=== PATIENT | male | born 1980 | race Caucasian/White ===

== ENCOUNTER 2021-08-21 17:29 | Emergency (ER) | payer OTHER, SELFPAY ==
--- NOTE | ~2021-08-21 | XR_ITS ---
EXAMINATION: XR HAND, RIGHT CLINICAL INFORMATION: Lacerations to the second, third and fourth digits. COMPARISON: None TECHNIQUE: PA, lateral, and oblique views of the right hand. FINDINGS: There is a soft tissue laceration mid phalanx third and fourth digits. No radiopaque calculi seen. No bony abnormality. The PIP and DIP joints are normal. The MCP and intercarpal joint spaces are normal. XR/XR hand RT min 3V IMPRESSION: Soft tissue laceration along the volar aspect mid phalanx third and fourth digits. No radiopaque foreign body. No bony normality.
[2021-08-21 17:42] VITALS: BP 140/89; PULSE 74; RESP 18; TEMP 36.6; O2SAT 98; BMI 29.6
--- NOTE | 2021-08-21 19:18 | ED_ITS ---
HPI - Wound/Laceration General Chief Complaint: Wound/Laceration Stated Complaint: laceration on R hand Source: patient Mode of arrival: ambulatory Limitations: no limitations History of Present Illness HPI narrative: 41-year-old male presents with laceration to 2nd 3rd 4th digits while he was at work. Patient got his hand stuck in a machine earlier today. Onset (ago): hour(s) (Several hours prior to arrival) Extremity Location: right: hand Place: work Patient tetanus UTD: No Context: accidental Associated symptoms: pain Treatments prior to arrival: bandage Related Data Previous Rx's Medication Instructions Recorded amoxicillin 875 mg-potassium 1 tab PO Q12H 10 days #20 tabs 08/21/21 clavulanate 125 mg tablet oxycodone 5 mg tablet 5 mg PO Q4H PRN pain 3 days #18 08/21/21 tabs Allergies Allergy/AdvReac Type Severity Reaction Status Date / Time No Known Allergies Allergy Unverified 11/30/19 17:59 Review of Systems Review of Systems: Constitutional: No Fever, No Chills ENT/Mouth: No Ear Pain, No Hoarseness, No sore throat Eyes: No Eye Pain, No Swelling, No Redness, No Foreign Body Cardiovascular: No Chest Pain, No SOB Respiratory: No Cough, No Dyspnea Gastrointestinal: No Nausea, No Vomiting, No Diarrhea, No abdominal Pain Genitourinary: No Dysuria, No Hematuria Musculoskeletal: positive right hand pain, No Myalgias, No Joint Swelling Skin: Positive lacerations to right 2nd 3rd and 4th volar aspect of the finger, lacerations to the dorsal aspect of the 3rd and 4th fingers, No rash Neuro: No Weakness, No Numbness, No Paresthesias, No Loss of Consciousness, No Dizziness, No Headache Psych: No Anxiety/Panic, No Depression Heme/Lymph: no easy bruising, no Lymphadenopathy Endocrine: No Polyuria, No Polydipsia Yes all other systems are reviewed and are negative [facility] Past Medical History Attestation statement: The following information was validated with the patient. Source: old records reviewed Social History Social History Advance Directives: No Advance Directives Information Provided: No Physical Exam Vital Signs: Vital Signs: Last Vital Signs Temp 98 F 08/21/21 17:42 Pulse 74 08/21/21 17:42 Resp 18 08/21/21 17:42 BP 140/89 H 08/21/21 17:42 Pulse Ox 98 08/21/21 17:42 O2 Del Method 08/21/21 17:42 BMI result Body Mass Index 29.6 Appearance: Alert. Oriented X3. Moderate distress. Eyes: Pupils equal, round and reactive to light. ENT: Pharynx normal. Neck: Normal inspection. Neck supple. CVS: Normal heart rate and rhythm. Pulses normal. Respiratory: No respiratory distress. Breath sounds normal. Abdomen: Soft and nontender. Skin: Lacerations to the 2nd 3rd and 4th volar aspects of the right hand fingers, laceration to the 2nd and 3rd dorsal aspect of the right hand, Normal skin color. Normal skin turgor. Extremities: Brisk capillary refill in equal pulses bilaterally. Swelling noted to the right hand. Swelling consistent with injury. Neuro: No motor deficit. No sensory deficit. Cranial nerves 2-12 intact. Course Course Course Narrative: 41-year-old male presents with lacerations to his 2nd, 3rd, 4th fingers on the right hand. Was evaluated at [facility], stated that the person that evaluated put 4 sutures in and the left him in the room for several hours and did not return. Patient stated that he could not wait any longer and came to this hospital. Wounds were irrigated with copious amounts of sterile saline and Betadine cleanse, 4 4 sutures of 6 Prolene removed from the middle finger without difficulty. Tdap was updated. X-rays are negative for acute findings requiring emergent intervention. Tdap will be updated at this time. Patient does have full range of motion, no indication of tendon injury. Brisk capillary refill and equal pulses to upper extremities. Please refer to procedure note laceration for details. 21:25 brisk capillary refill continues. Equal pulses. Neurologically intact. Plan of care is for patient to follow-up with hand surgery, take antibiotics, pain management with oxycodone. manager client service utilized for all corresponded. We will translate utilized for discharge instructions. Patient verbalized understanding of and agrees to plan of care to discharge home. Verbalized understanding of signs and symptoms indicating need for emergent intervention MDM - Wound/Laceration Differential Diagnosis Differential diagnosis: Likely laceration Medical Records Attestation: I reviewed the patient's medical records. Imaging Data Right hand x-ray: Attestation: I personally reviewed and interpreted this imaging study as follows: Radiologist's impression: EXAMINATION: XR HAND, RIGHT CLINICAL INFORMATION: Lacerations to the second, third and fourth digits.? COMPARISON: None? TECHNIQUE: PA, lateral, and oblique views of the right hand. FINDINGS: There is a soft tissue laceration mid phalanx third and fourth digits. No radiopaque calculi seen. No bony abnormality. The PIP and DIP joints are normal. The MCP and intercarpal joint spaces are normal.? XR/XR hand RT min 3V IMPRESSION: Soft tissue laceration along the volar aspect mid phalanx third and fourth digits. No radiopaque foreign body. No bony normality. Procedures Laceration Laceration 1: Site: hand Side (If applicable): right (Index finger, volar aspect) Size (cm): 1 Description: linear Depth: simple, single layer Local Anesthetic: lidocaine 1% Amount of anesthesia used (mL): 2 Pre-repair: wound explored, irrigated extensively and deep structures intact Skin layer closed with: nylon Size (cm): 3-0 Number of sutures: 3 Technique: simple, interrupted Laceration 2: Site: hand Side (If applicable): right (Middle finger, volar aspect) Size (cm): 4 Description: linear Depth: simple, single layer Local Anesthetic: lidocaine 1% Amount of anesthesia used (mL): 5 Pre-repair: wound explored, irrigated extensively and deep structures intact Skin layer closed with: nylon Size (cm): 3-0 Number of sutures: 16 Technique: simple, interrupted Laceration 3: Site: hand Side (If applicable): right (Ring finger, volar aspect) Size (cm): 4 Description: linear Depth: simple, single layer Local Anesthetic: lidocaine 1% Amount of anesthesia used (mL): 5 Pre-repair: wound explored, irrigated extensively and deep structures intact Skin layer closed with: nylon Size (cm): 3-0 Number of sutures: 11 Technique: simple, interrupted Laceration 4: Site: hand Side (If applicable): right (Middle finger, dorsal aspect) Size (cm): 0.5 Description: linear Depth: simple, single layer Local Anesthetic: lidocaine 1% Amount of anesthesia used (mL): 1 Pre-repair: wound explored, irrigated extensively and deep structures intact Skin layer closed with: nylon Size (cm): 3-0 Number of sutures: 3 Technique: simple, interrupted Laceration 5: Site: hand Side (If applicable): right (Ring finger, dorsal aspect) Size (cm): 0.5 Description: linear Depth: simple, single layer Local Anesthetic: lidocaine 1% Amount of anesthesia used (mL): 1 Pre-repair: wound explored, irrigated extensively and deep structures intact Skin layer closed with: nylon Size (cm): 3-0 Number of sutures: 2 Technique: simple, interrupted Discharge Plan Discharge Clinical Impression: Laceration Patient Disposition: Home, Self-Care Instructions: Care For Your Stitches (ED), Finger Laceration (ED) Additional Instructions: Usted fue evaluado por laceraciones en douglass mano derecha, los dedos pulgar 2, 3 y 4. Aplicamos numerosas suturas. Debe hacer un seguimiento con un cirujano de la mano. Por favor, elen un seguimiento con la . Nina Earnest. Te proporcion? un n?fortunato de tel?fono. Por favor llame y solicite jolynn karishma. [place] Augmentin 875 mg cada 12 horas norm los pr?ximos 10 d?as. Actualizamos douglass vacuna Tdap hoy. Prescribimos oxicodona 5 mg. [place] kevan medicamento cada 4 horas seg?n sea necesario para controlar el dolor. Kevan medicamento es un narc?norma y tiene un alto riesgo de adicci?n y abuso. No conduzca ni maneje maquinaria mientras ghanshyam kevan medicamento. Kevan medicamento puede causar somnolencia, mayor riesgo de ca?menon, retraso en el tiempo de reacci?n y estre?imiento. Marie MiraLax diariamente para ayudar a prevenir el estre?imiento. Alterna Tylenol 650 mg cada 6 horas y Motrin 600 mg cada 6 horas para ayudar a controlar el dolor. Anote a qu? hora ghanshyam estos medicamentos para evitar jolynn sobredosis accidental. Regrese en 10 a 14 d?as para que le quiten las suturas. Si nota signos o s?ntomas que indican infecci?n, busque atenci?n m?dica de inmediato. Seguimiento con conexi?n laboral. Radha por elegir kevan departamento de emergencias para douglass evaluaci?n. Por favor, elen un seguimiento con el m?dico de atenci?n primaria seg?n sea necesario. Regrese al departamento de emergencias por cualquier s?ntoma nuevo, preocupante o que empeore. You were evaluated for lacerations to your right hand, the thumb 2nd, 3rd and 4th fingers. We applied numerous sutures. You must follow-up with a hand surgeon. Please follow-up with Dr. Nina Tinoco's. I provided a phone number for you. Please call and request an appointment. Take Augmentin 875 mg every 12 hours for the next 10 days. We updated your Tdap vaccine today. We prescribed oxycodone 5 mg. Take this medication every 4 hours as needed for pain management. This medication is a narcotic and has high risk for addiction and abuse. Do not drive or operate machinery while taking this medication. This medication can cause drowsiness, increased risk for falls, delay reaction time, and cause constipation. Drink MiraLax daily to help prevent constipation. Alternate Tylenol 650 mg every 6 hours and Motrin 600 mg every 6 hours to help with pain management. Write down what time he take these medications to prevent accidental overdose. Please return in 10-14 days to have sutures removed. If you notice signs or symptoms indicating infection please seek medical attention immediately. [facility] with [facility] Thank you for choosing this emergency department for evaluation. Please follow-up with primary care physician as needed. Return to the emergency department for any new, concerning, or worsening symptoms. Prescriptions: New amoxicillin-pot clavulanate 875-125 mg tablet 1 tab PO Q12H 10 Days Qty: 20 0RF oxycodone 5 mg tablet 5 mg PO Q4H PRN (Reason: pain) 3 Days Qty: 18 0RF Rx Instructions: Partial Fill upon patient request. Hand trauma Referrals: [facility] [Provider Group] Micheline Adan MD [Physician] - Stand Alone Forms: Work/School Release Interventions: ED Discharge Assessment Last Done: 08/21/21 21:36 Discharge Date/Time: 08/21/21 21:38
[2021-08-21] MEDS: Lidocaine HCl 1 % MPF 5 ML VIAL 15 ML SUBCUT (20:57)
[2021-08-21] MEDS: Diphth,Pertus(ACell),Tet Adult 0.5 ML SYRINGE IM (20:57)
[2021-08-21] MEDS: Amoxicillin/Potassium Clav 875 MG TABLET PO (20:57)
[2021-08-21] MEDS: oxyCODONE HCl Immed Release 5 MG TABLET 10 MG PO (21:21)
== END 2021-08-21 21:38 | disposition home or self-care (01) ==
PROVIDERS: Emergency Provider Emergency Medicine
DX: S61.411A Laceration without foreign body of right hand, initial encounter (principal); W31.9XXA Contact with unspecified machinery, initial encounter; Y93.89 Activity, other specified; Y92.017 Garden or yard in single-family (private) house as the place of occurrence of the external cause; Y99.0 Civilian activity done for income or pay
CPT/HCPCS: 12044; 73130; 90471; 90715; 99283; 99284